=== PATIENT | male | born 1960 | race Caucasian/White ===

== ENCOUNTER 2018-07-14 19:26 | Inpatient (IN) | payer BC ==
[~2018-07-14] VITALS: Ht 205.7 cm; Wt 117.0 kg
[2018-07-14] MEDS ORDERED: SODIUM CHLORIDE 0.9% 1000 ML BAG IV STA (19:58)
[2018-07-14] MEDS ORDERED: KETOROLAC TROMETHAMINE 30 MG/ML VIAL IV STA (20:17)
--- NOTE | 2018-07-14 21:03 | Diagnostic Imaging Report ---
EXAM: CT Abdomen and Pelvis WITH contrast INDICATION: Intermittent mid abdominal pain for 2 days COMPARISON: None. TECHNIQUE: Abdomen and pelvis were scanned utilizing a multidetector helical scanner from the lung base to the pubic symphysis after administration of IV contrast. Coronal and sagittal reformations were obtained. Routine protocol is performed. IV CONTRAST: None. ORAL CONTRAST: Water RADIATION DOSE: Total DLP: 839.79 mGy*cm Estimated effective dose: (DLP x 0.015 x size factor) mSv COMPLICATIONS: None FINDINGS: LINES and TUBES: None. LOWER THORAX: Unremarkable HEPATOBILIARY: There is a 3.6 x 2.9 cm mass in segment V of the liver (series 2, image 33). Other subcentimeter hypodensities in the liver are too small to characterize. No biliary ductal dilation. GALLBLADDER: There is irregularity of the gallbladder wall. No radiopaque stones. SPLEEN: The spleen is enlarged, measuring 14.7 cm in AP dimension (series 2, image 27). There is a lobulated appearance of the spleen, and a splenic mass cannot be excluded. PANCREAS: There is an ill-defined 3.5 x 2.5 cm mass in the pancreatic tail (series 2, image 26). ADRENALS: No adrenal nodules KIDNEYS/URETERS: No hydronephrosis. No cystic or solid mass lesions. No stones. GI TRACT: No abnormal distention, wall thickening, or evidence of bowel obstruction. Appendix is normal. PELVIC ORGANS/BLADDER: The bladder is nondistended. LYMPH NODES: A mass in the pancreaticoduodenal groove likely represents a portacaval lymph node and measures 4.4 x 5.4 cm (series 2, image 35). More superiorly, another periportal lymph node (image 26) measures 2.6 cm. There is bilateral external iliac adenopathy. For example, a right external iliac lymph node (series 2, image 82) measures 1.5 cm. A left external iliac lymph node (image 80) measures 1.2 cm. Prominent left common iliac lymph node (image 58) measures 1.0 cm. VESSELS: Unremarkable. PERITONEUM / RETROPERITONEUM: No free air or fluid. BONES: Unremarkable. SOFT TISSUES: Unremarkable. IMPRESSION: 1. 3.5 cm ill-defined mass in the pancreatic tail. There is bulky periportal lymphadenopathy and a 3.6 cm liver mass. 2. The findings are highly suspicious for metastatic cancer (pancreatic or biliary primary). Recommend contrast-enhanced CT of the abdomen and pelvis for further evaluation. 3. Bilateral pelvic adenopathy is indeterminate. Will Shelley MD Signed by: Dr. Will Shelley M.D. on 07/14/2018 9:00 PM
[2018-07-14] MEDS ORDERED: ONDANSETRON HCL INJ 2 MG/ML VIAL IV PRN ×2 (21:30→21:45)
[2018-07-14 23:40] VITALS: BP 140/80
[2018-07-15] VITALS (8 sets, daily range): BP systolic 137–153; BP diastolic 74–80
[2018-07-15 06:30] LABS: AMYLASE 61 U/L (25-125); LIPASE 44 U/L (8-78)
--- NOTE | 2018-07-15 11:45 | Consultation ---
DATE OF CONSULTATION: July 15, 2018 CONSULTATION TO: Nancy Schneider MD Mr. Black is a 57-year-old white male who has been referred to me for evaluation of abnormal CAT scan. The patient had presented to the ER with history of abdominal pain. Subsequently, a CAT scan of the abdomen and pelvis was done with IV contrast. There was a 3.6 x 2.9 cm mass in segment 5 of the liver. Other subcentimeter hypodensities in the liver were too small to characterize. The spleen was enlarged. There was a lobulated appearance of the spleen. As per the pawn shop keeper, a splenic mass could not be excluded. In the pancreas, there was an ill-defined 3.5 x 2.5 cm mass in the pancreatic tail. Adrenals were reported essentially normal. Kidneys were reported normal. GI tract was reported essentially normal. Lymphadenopathy, a mass in the pancreaticoduodenal groove likely represented a portocaval lymph node. It was described as 4.4 x 5.4 cm. More superiorly, another periportal lymph node, 2.6 cm, was also described. The radiologist also has described bilateral external iliac adenopathy, right iliac lymph node 1.5 cm, left external iliac lymph node 1.2 cm. Prominent left common iliac lymph node 1 cm. This was reported by Dr. Will Shelley. SOCIAL HISTORY: The patient claims that he did smoke for approximately 6 months 20 years back. FAMILY HISTORY: Noncontributory. ALLERGIES: REPORTED NONE. MEDICATIONS AT THIS TIME 1. Ketorolac. 2. Ondansetron. 3. Sodium chloride. LABS: Not available except for amylase being 61 and lipase being 44. PHYSICAL EXAMINATION GENERAL: Rather large-built male. No adenopathy, even though the lymphadenopathy was described by the radiologist. HEART: Within normal limits. LUNGS: Clear. ABDOMEN: Soft. RECTAL: Exam deferred. CENTRAL NERVOUS SYSTEM: Essentially normal. IMPRESSION 1. Metastatic cancer of the pancreas until proven otherwise. 2. Second possibility is a lymphoma. PLAN, COMMENTS AND SUGGESTIONS: At least in the chart, the patient does not have any insurance. He is self pay. The patient claims that he might have insurance as he is employed, but he is not so sure. He is only 57 years old. Even if he works and has insurance, he will lose the insurance as the treatment would be fairly aggressive. This is cancer of the pancreas. It is palliative treatment with Gemzar only. This drug was approved for palliation rather than cure. If this is lymphoma, the patient would require fairly aggressive chemotherapy and close followup. Because of these social reasons, I suggest the patient to be plugged into a system where he will be taken care of lifetime such as either [facility] or [facility]. CA19-9 as a marker for cancer of the pancreas could be done. LDH as a marker for lymphoma can be done. Liver biopsy would be much easier. I have discussed this at length with the patient to decide as to what he would consider. The family situation is such that he has his eldest daughter here and the son here and a girlfriend. The rest of the family is in [facility]. Family support will be extremely essential. Thank you very much for allowing me to participate in the management of this patient during this hospitalization. Await decision of both the attending as well as the patient for proper treatment at a proper institution. Thank you very much for allowing me to participate in the management of this patient. Job#: [id number] cc:NANCY SCHNEIDER MD
[2018-07-15] MEDS ORDERED: MORPHINE SULFATE 2 MG/ML SYR IV PRN (18:45)
[2018-07-15] MEDS ORDERED: BISACODYL 5 MG TAB EC PO PRN (18:45)
[2018-07-15] MEDS: HYDROCODONE/APAP 5MG-325MG TAB PO PRN (19:00)
--- NOTE | 2018-07-15 19:46 | Consultation ---
DATE OF CONSULTATION: July 15, 2018 GASTROENTEROLOGY CONSULTATION REFERRING PHYSICIAN: Dr. Schneider. REASON FOR CONSULTATION: Cancer. HISTORY OF PRESENT ILLNESS: Mr. Black is a very pleasant 57-year-old man who actually felt very well up until a few days ago this week. At that time he noted abdominal pain which was in the center of his abdomen. He also has back pain although he is not sure if that is related to the bed, since he is in a bed that is a little bit small for him now, and he says it is uncomfortable. CAT scan in the ER was significant for mass, both in the liver and the pancreas, rule out splenic mass as well. He had significant lymphadenopathy. He reports he has not been losing weight. He has some chills here in the hospital, but otherwise has not had fevers, chills or sweats at home. He has been able to eat and is quite functional. He is employed. PAST MEDICAL HISTORY: None. MEDICATION AND ALLERGIES: REVIEWED. PLEASE SEE MAR MEDICATION RECONCILIATION FORM. SOCIAL HISTORY: He smoked about 20 years ago, remote. FAMILY HISTORY: Positive for prostate cancer. REVIEW OF SYSTEMS: Twelve system review is positive for that mentioned in history of present illness, otherwise unremarkable. PHYSICAL EXAMINATION GENERAL: Pleasant, alert and oriented and in no acute distress. HEENT: Pupils are equal, round, and reactive to light. NECK: Supple. LUNGS: Clear. CARDIOVASCULAR: S1 and S2. ABDOMEN: Soft, nontender. No rebound, guarding or masses. EXTREMITIES: No cyanosis, clubbing or edema. PSYCHIATRIC: Calm and cooperative. NEUROLOGIC: Nonfocal. HEME/ONC: No bruising or adenopathy. Electronic health record is reviewed for laboratory and radiologic studies as well as history. ASSESSMENT: Malignancy. I appreciate he has already been seen by Dr. Palmer. We are concerned regarding metastatic pancreatic cancer, lymphoma, less likely. He is awaiting liver biopsy for further characterization. We will also order full labs. Thank you very much for asking me to see Mr. Black. Any questions or concerns, please do not hesitate to contact me. Job#: [id number]
[2018-07-16] VITALS (8 sets, daily range): BP systolic 115–147; BP diastolic 61–76
[2018-07-16] MEDS: HYDROCODONE/APAP 5MG-325MG TAB PO PRN ×3 (00:29→21:22)
[2018-07-16] MEDS ORDERED: IBUPROFEN 400 MG TAB PO PRN (05:00)
[2018-07-16 05:38] LABS: BASOPHILS # (AUTO) 0.1 (0.0-0.1); BASOPHILS % 0.5 % (0.0-1.0); EOSINOPHILS # (AUTO) 0.1 (0.0-0.4); EOSINOPHILS % 0.6 % (0.0-6.0); HEMATOCRIT 35.6 % (38.2-49.6); HEMOGLOBIN 12.1 g/dL (14.0-18.0); LYMPHOCYTES # (AUTO) 0.8 (1.0-3.2); LYMPHOCYTES % 7.7 % (18.0-39.1); MEAN CORPUSCULAR HEMOGLOBIN 31.1 pg (28-32); MEAN CORPUSCULAR VOLUME 91.5 fL (81-99); MONOCYTES # (AUTO) 1.3 (0.2-0.8); MONOCYTES % 13.2 % (4.4-11.3); NEUTROPHILS # (AUTO) 7.9 (2.1-6.9); NEUTROPHILS % 77.2 % (38.7-80.0); PLATELET COUNT 167 x10e3/uL (140-360); RED BLOOD COUNT 3.89 x10e6/uL (4.3-5.7); RED CELL DISTRIBUTION WIDTH 12.8 % (11.7-14.4)
[2018-07-16 06:07] LABS: ALANINE AMINOTRANSFERASE 19 IU/L (0-55); ALBUMIN 3.3 g/dL (3.5-5.0); ALBUMIN/GLOBULIN RATIO 1.1 (0.8-2.0); ALKALINE PHOSPHATASE 39 IU/L (40-150); ANION GAP 12.5 mmol/L (8-16); BLOOD UREA NITROGEN 13 mg/dL (7-26); BUN/CREATININE RATIO 15 (6-25); CALCIUM 8.6 mg/dL (8.4-10.2); CARBON DIOXIDE 25 mmol/L (22-29); CHLORIDE 104 mmol/L (98-107); CREATININE, SERUM 0.87 mg/dL (0.72-1.25); EST GLOMERULAR FILTRATION RATE > 60 ML/MIN (60-); GLUCOSE 117 mg/dL (74-118); POTASSIUM 3.5 mmol/L (3.5-5.1); SODIUM 138 mmol/L (136-145)
[2018-07-16] MEDS: DOCUSATE SODIUM 100 MG CAP PO SCH ×2 (09:10→16:35)
--- NOTE | 2018-07-16 10:53 | Progress Note ---
DATE: July 16, 2018 INTERNAL MEDICINE PROGRESS NOTE SUBJECTIVE: Patient is doing well. No significant complaint. PHYSICAL EXAMINATION HEART: Regular rhythm, normal S1 and S2 sounds. LUNGS: Clear bilaterally. ABDOMEN: Soft. EXTREMITIES: No evidence of cyanosis, edema or trauma. VITALS: Blood pressure 119/61, temperature 98.8, heart rate 70 per minute, respiratory rate 18 per minute, oxygen saturation 96%. BLOOD WORK: We have BMP with sodium 138, potassium 3.5, chloride 104, CO2 25, BUN 13, creatinine 0.87, glucose 170. On the CBC, white blood count 10.1, hemoglobin 12.1, hematocrit 35.6, platelet count 116,000. AST 19, ALT 19, total bilirubin 1.5, alkaline phosphatase 139. Blood cultures are pending. FINAL IMPRESSION 1. Pancreatic mass with metastatic lesions to the liver, most likely pancreatic cancer. 2. Fever, which is resolved. 3. Anemia. 4. Borderline hypokalemia. 5. Elevated total bilirubin. PLAN OF TREATMENT 1. Continue pain control. 2. Continue Colace 100 mg twice a day. 3. [place] 1 tablet q.4 h. as needed for pain. 4. Morphine 2 mg IV q.6 h. as needed for severe pain only. 5. Ibuprofen 400 mg q.4 h. as needed for fever. 1. The patient most likely has pancreatic cancer with metastases, very poor prognosis. Dr. Josemanuel Pal is on the case from oncology point of view. Dr. Matias has been consulted from gastroenterology. Patient is comfortable right now. Job#: [id number]
[2018-07-17] VITALS (8 sets, daily range): BP systolic 102–139; BP diastolic 56–74
[2018-07-17] MEDS: DOCUSATE SODIUM 100 MG CAP PO SCH ×2 (08:15→17:00)
[2018-07-17] MEDS: HYDROCODONE/APAP 5MG-325MG TAB PO PRN ×3 (11:49→22:59)
[2018-07-17] MEDS ORDERED: POTASSIUM CHLORIDE 20 MEQ TAB CR PO NR (13:00)
--- NOTE | 2018-07-17 13:43 | Progress Note ---
DATE: July 17, 2018 INTERNAL MEDICINE PROGRESS NOTE SUBJECTIVE: The patient complains of very mild abdominal pain relieved by pain medication. PHYSICAL EXAMINATION VITAL SIGNS: Blood pressure 122/66. Temperature 99.8. Heart rate 75 per minute. Respiratory rate 18 per minute. Oxygen saturation 98%. ABDOMEN: Soft. No tenderness, distention or visceromegaly. EXTREMITIES: No evidence of cyanosis, edema or trauma. LABS: On the BMP, sodium 138, potassium 3.5, chloride 104, CO2 25, BUN 13, creatinine 0.87. Glucose 117. CBC showed white blood count 10.1, hemoglobin 12.1, hematocrit 35.6, platelet count 169,000. AST 19, ALT 19, total bilirubin 1.5, alkaline phosphatase 39. FINAL IMPRESSION 1. Pancreatic mass with liver metastases. 2. Abdominal pain. 3. Borderline fever. 4. Mild anemia. 5. Hypokalemia. PLAN OF TREATMENT: Patient will continue with current medication regimen, Bude as needed for pain, morphine 2 mg IV q.6 h. as needed for severe pain, ibuprofen 400 mg p.o. q.4 h. as needed. Follow up blood culture report. Biopsy of the pancreas is going to be done tomorrow. Poor prognosis. Job#: [id number]
[2018-07-18] VITALS (7 sets, daily range): BP systolic 102–138; BP diastolic 56–69
[2018-07-18 06:02] LABS: BASOPHILS # (AUTO) 0.1 (0.0-0.1); BASOPHILS % 0.8 % (0.0-1.0); EOSINOPHILS # (AUTO) 0.2 (0.0-0.4); EOSINOPHILS % 2.4 % (0.0-6.0); HEMATOCRIT 36.3 % (38.2-49.6); HEMOGLOBIN 12.1 g/dL (14.0-18.0); LYMPHOCYTES # (AUTO) 0.9 (1.0-3.2); LYMPHOCYTES % 12.7 % (18.0-39.1); MEAN CORPUSCULAR HGB CONC 33.3 g/dL (31-35); MEAN CORPUSCULAR VOLUME 93.1 fL (81-99); MONOCYTES % 14.2 % (4.4-11.3); NEUTROPHILS % 69.8 % (38.7-80.0); PLATELET COUNT 171 x10e3/uL (140-360); RED CELL DISTRIBUTION WIDTH 12.4 % (11.7-14.4)
[2018-07-18 06:37] LABS: ALANINE AMINOTRANSFERASE 36 IU/L (0-55); ALBUMIN 3.1 g/dL (3.5-5.0); ALBUMIN/GLOBULIN RATIO 0.9 (0.8-2.0); ALKALINE PHOSPHATASE 51 IU/L (40-150); ANION GAP 12.6 mmol/L (8-16); BLOOD UREA NITROGEN 12 mg/dL (7-26); BUN/CREATININE RATIO 13 (6-25); CALCIUM 8.9 mg/dL (8.4-10.2); CARBON DIOXIDE 28 mmol/L (22-29); CHLORIDE 102 mmol/L (98-107); CREATININE, SERUM 0.94 mg/dL (0.72-1.25); EST GLOMERULAR FILTRATION RATE > 60 ML/MIN (60-); GLUCOSE 107 mg/dL (74-118); POTASSIUM 3.6 mmol/L (3.5-5.1); SODIUM 139 mmol/L (136-145)
[2018-07-18 06:58] LABS: INR 1.24; PROTHROMBIN TIME 14.7 seconds (11.9-14.5)
[2018-07-18] MEDS: DOCUSATE SODIUM 100 MG CAP PO SCH ×2 (09:00→18:25)
[2018-07-18] MEDS ORDERED: MIDAZOLAM HCL 2 MG/2 ML VIAL ONE (09:42)
[2018-07-18] MEDS ORDERED: GELATIN SPONGE SZ 100 ONE (09:43)
[2018-07-18] MEDS ORDERED: FENTANYL CITRATE/PF 100MCG/2 ML INJ ONE (09:43)
--- NOTE | 2018-07-18 10:01 | Progress Note ---
DATE: July 18, 2018 Mr. Black is a 57-year-old man who denies any prior medical history. He came to the emergency room complaining of abdominal pain radiating to the back. CAT scan shows a mass in the pancreas as well as a mass in the liver which are lymph nodes. The patient has been seen by GI and oncologist. He is going for a liver biopsy today. PHYSICAL EXAMINATION GENERAL: He is awake and alert. VITALS: Temperature 98.7, blood pressure 138/67. HEART: Regular rate. LUNGS: Clear to auscultation. ABDOMEN: Soft. LABS: On the blood work, potassium is 3.6, creatinine 0.94, glucose 107. White count 7.11, hemoglobin 12.1, hematocrit 36.3. Blood cultures were negative. Amylase and lipase are normal. Alkaline phos, total protein, CEA19-9, and carcinoembryonic antigen are pending. ASSESSMENT AND PLAN: Metastatic cancer, probably of the pancreas versus lymphoma. The plan at the present time for this patient is to have a liver biopsy. Once we have the results, the patient is going to require aggressive treatment. Dr. Pal is on the case and discussed with the patient the different options. GI also evaluated the patient. We are going to wait for lab results and biopsy results. The overall prognosis is poor. Job#: [id number]
--- NOTE | 2018-07-18 13:05 | Diagnostic Imaging Report ---
PROCEDURE:IR BIOPSY LIVER COMPARISON:CT abdomen and pelvis without contrast 07/14/2018. Preprocedure diagnosis: Pancreatic and liver masses Post procedure diagnosis: Pancreatic and liver masses Ship'S Captain: Jaylen Quintero M.D. Sedation/anesthesia: Fentanyl 50 mcg intravenous, Versed 1 mg intravenous. The patient's heart rate and pulse oximetry were continuously monitored by the interventional radiology nurse. Blood pressure was monitored at 5 minute intervals. MEDICATIONS: Lidocaine 1% for local anesthesia BLOOD LOSS: Less than 5 cc Blood products administered: None SAMPLES: Fine-needle aspiration specimens x3, core biopsy specimens x5 Condition at completion of procedure: Stable Disposition: Return to floor FINDINGS: Informed consent for the procedure was obtained from the patient and documented in the medical record after discussion of risks and benefits. The patient was placed in the right anterior oblique position on the sonographic table. Preliminary sonographic evaluation confirmed presence of a hypoechoic lesion in segment 5, adjacent to the gallbladder fossa. A suitable percutaneous approach was identified and the overlying skin was prepped and draped in the standard sterile fashion. 1% lidocaine was infiltrated into the skin and subcutaneous tissues for local anesthesia. Then under continuous sonographic guidance, a 16 gauge needle guide was advanced to the periphery of the mass. Subsequently, 3 fine needle aspiration specimens were obtained using 20 gauge Chiba needles. Specimens were submitted to on-site cytopathology personnel and intralesional location was confirmed. Then, 5 core biopsy specimens were obtained using a coaxial 18 gauge, 2 cm throw core biopsy apparatus. Specimens were submitted in formalin for histologic analysis. At the conclusion of sampling a small amount of Gelfoam slurry was gently injected as the needle guide was removed for augmentation of hemostasis. A sterile dressing was applied. The patient tolerated the procedure well without immediate complication. CONCLUSION: Successful ultrasound-guided fine needle aspiration and core biopsies of a hypoechoic lesion in hepatic segment 5 as described above. Dictated by: Jaylen Quintero M.D. on 07/18/2018 at 13:12 Electronically approved by: Jaylen Quintero M.D. on 07/18/2018 at 13:12
--- NOTE | 2018-07-18 13:06 | Diagnostic Imaging Report ---
PROCEDURE:FINE NEEDLE ASPIRATION COMPARISON:None. INDICATIONS:Liver Mass FINDINGS:Refer to conclusion CONCLUSION: For full dictated report refer to "BIOPSY LIVER" also from 07/18/2018. Dictated by: Jayeln Quintero M.D. on 07/18/2018 at 13:12 Electronically approved by: Jaylen Quintero M.D. on 07/18/2018 at 13:12
--- NOTE | 2018-07-18 13:07 | Diagnostic Imaging Report ---
PROCEDURE:ULTRASOUND GUIDANCE FOR PROCEDURE COMPARISON:None. INDICATIONS: Liver Mass PROCEDURE: See conclusion CONCLUSION: For full dictated report refer to "BIOPSY LIVER" also from 07/18/2018. Dictated by: Jaylen Quintero M.D. on 07/18/2018 at 13:13 Electronically approved by: Jaylen Quintero M.D. on 07/18/2018 at 13:13
[2018-07-18] MEDS: HYDROCODONE/APAP 5MG-325MG TAB PO PRN (18:25)
[2018-07-19] VITALS: BP 135/61
[2018-07-19 04:00] VITALS: BP 125/74
[2018-07-19] MEDS: HYDROCODONE/APAP 5MG-325MG TAB PO PRN (07:13)
[2018-07-19 08:40] VITALS: BP 126/63
[2018-07-19] MEDS: DOCUSATE SODIUM 100 MG CAP PO SCH ×2 (09:35→17:00)
--- NOTE | 2018-07-19 12:45 | Discharge Summary ---
HISTORY: Mr. Black is a 57-year-old male who denies any prior medical history, came to the emergency room complaining of abdominal pain. HOSPITAL COURSE: A CAT scan showed a mass in the pancreas and liver with several lymph nodes. He underwent liver biopsy yesterday, was seen by GI and oncologist. The plan at the present time is to discharge him home if okay with Dr. Pal and have him follow up as an outpatient. Patient is going to be referred to [facility]ost[facility]. PHYSICAL EXAMINATION GENERAL: He is awake and alert, feeling okay. VITAL SIGNS: Temperature is 98.8. Blood pressure 126/63. HEART: Regular rate. LUNGS: Clear to auscultation. ABDOMEN: Soft. LAB WORK: White count 7.11, hemoglobin is 12.1, hematocrit is 36.3. Potassium 3.6, creatinine is 0.94, glucose is 107. Alpha-fetoprotein, CA19-9 and carcinoembryonic antigens are negative and normal. Amylase and lipase were normal. Blood cultures negative. ASSESSMENT AND PLAN: Metastatic cancer, probably pancreatic cancer versus lymphoma. The plan at the present time is to discharge the patient home. He had a liver biopsy done yesterday. Dr. Pal is going to refer him to [facility]. All this was discussed with patient. All questions were answered to satisfaction. ROSEANNA SÁNCHEZ MD Job#: [id number] EV
[2018-07-19 13:45] VITALS: BP 145/74
[2018-07-19 15:56] VITALS: BP 139/80
== END 2018-07-19 18:30 | disposition home or self-care (01) | DRG 436 ==
LOC: FSED 19:26 → ERHOLD 21:24 → MED/SURG 07-15
PROVIDERS: ADMIT Internal Medicine; ATTEND Internal Medicine
PROC: 0FB03ZX Excision of Liver, Percutaneous Approach, Diagnostic (ICD-10-PCS; principal; 2018-07-18)
DX: C25.2 Malignant neoplasm of tail of pancreas (principal); C78.7 Secondary malignant neoplasm of liver and intrahepatic bile duct; C85.90 Non-Hodgkin lymphoma, unspecified, unspecified site; E87.6 Hypokalemia; D64.9 Anemia, unspecified
CPT/HCPCS: 10022; 36415; 47000; 74176; 76942; 80053; 81003; 82105; 82150; 82270; 82378; 83615; 83690; 85025; 85610; 85730; 86301; 87040; 88112; 88172; 88173; 88305; 88307; 99152; 99153; 99284; J1885; J2250; J2270; J2405; J7030